=== PATIENT | female | born 1960 | race Hispanic/Latino ===

== ENCOUNTER 2021-11-18 20:41 | Emergency (ER) | payer BC ==
[~2021-11-18] VITALS: Ht 157.5 cm; Wt 56.8 kg
[2021-11-18] MEDS ORDERED: FAMOTIDINE20 M1 PO (21:03)
[2021-11-18] MEDS ORDERED: OMEPRAZOLE DR40 MG (21:03)
[2021-11-18] MEDS ORDERED: GABAPENTIN100 MG PO (21:04)
[2021-11-18] MEDS ORDERED: METFORMIN HCL1000 MG PO (21:05)
[2021-11-18] MEDS ORDERED: FEROSUL325 MG (21:05)
[2021-11-18] MEDS ORDERED: SIMVASTATIN10 MG PO (21:05)
[2021-11-18] MEDS ORDERED: ASPIRIN81 MG PO (21:06)
[2021-11-18] MEDS ORDERED: HYDROCHLOROT25 MG PO (21:07)
[2021-11-18] MEDS ORDERED: LISINOPRIL10 MG PO (21:07)
[2021-11-18 21:30] VITALS: BP 161/83
[2021-11-18 21:49] LABS: HEMATOCRIT 38.8 % (37.0-47.0); HEMOGLOBIN 12.3 g/dl (12.0-16.0); MEAN CELL VOLUME 87.4 fL CALC (80.0-100.0); MEAN CORPUSCULAR HGB 27.7 pG CALC (26.0-32.0); MEAN CORPUSCULAR HGB CONC 31.7 g/dL CAL (32.0-36.0); NEUT# 3.92 thou/uL (2.00-7.15); RED BLOOD COUNT 4.44 mill/uL (4.20-5.60); RED CELL DISTRI WIDTH 14.3 % (11.5-15.5)
[2021-11-18 22:00] VITALS: BP 135/72
[2021-11-18 22:01] LABS: ALBUMIN 4.2 g/dL (3.2-5.0); ALKALINE PHOSPHATASE 66 u/l (38-126); ANION GAP 14 (6-22 (CALC)); BILIRUBIN, TOTAL 0.2 mg/dL (0.0-1.4); BUN 26 mg/dL (8-23); BUN/CREATININE RATIO 26 (12-20 (CALC)); CARBON DIOXIDE 29 mmol/l (22-30); CHLORIDE 103 mmol/l (95-108); GFR FOR AFR.AMER. > 60 ML/MIN (>=60 (CALC)); GFR OTHER RACES 56 ML/MIN (>=60 (CALC)); POTASSIUM 4.7 mmol/l (3.5-5.1); SGOT/AST 20 u/l (9-36); SODIUM 141 mmol/l (137-146); TOTAL PROTEIN 7.4 g/dL (6.3-8.2)
[2021-11-18 22:30] VITALS: BP 129/69
[2021-11-18 22:35] VITALS: BP 125/70
[2021-11-18] MEDS ORDERED: TORADOL PO (22:52)
[2021-11-18] MEDS ORDERED: ORPHENADRINE100 MG PO (22:52)
[2021-11-19 02:48] VITALS: BP 172/69
[2021-11-19 03:02] VITALS: BP 162/66
[2021-11-19 03:31] VITALS: BP 185/71
[2021-11-19 03:37] VITALS: BP 181/77
== END 2021-11-18 23:08 | disposition home or self-care (01) | DRG 552 ==
LOC: ED 20:41
PROVIDERS: Family Medicine
DX: S16.1XXA Strain of muscle, fascia and tendon at neck level, initial encounter (principal); M47.892 Other spondylosis, cervical region